=== PATIENT | female | born 1945 ===

== ENCOUNTER 2017-07-01 21:58 | Inpatient (IN) | payer OTHER ==
[~2017-07-01] VITALS: Ht 165.1 cm; Wt 81.6 kg
[2017-07-01] MEDS ORDERED: JANUVIA100 MG (22:28)
[2017-07-01] MEDS ORDERED: LISINOPRIL20 MG PO (22:28)
[2017-07-01] MEDS ORDERED: SIMVASTATIN20 MG PO (22:30)
[2017-07-01] MEDS ORDERED: PAXIL20 MG PO (22:30)
[2017-07-01] MEDS ORDERED: FENOFIBRATE40 MG PO (22:30)
== END 2017-07-07 12:18 | disposition home or self-care (01) | DRG 391 ==
LOC: ER 21:58 → MEDJ 07-02 20:11
PROC: BW40ZZZ Ultrasonography of Abdomen (ICD-10-PCS; principal; 2017-07-02)
PROC: BW21Y0Z Computerized Tomography (CT Scan) of Abdomen and Pelvis using Other Contrast, Unenhanced and Enhanced (ICD-10-PCS; 2017-07-02)
DX: K58.0 Irritable bowel syndrome with diarrhea (principal); K85.80 Other acute pancreatitis without necrosis or infection; E86.0 Dehydration; I10 Essential (primary) hypertension; E78.4 Other hyperlipidemia; E11.9 Type 2 diabetes mellitus without complications